=== PATIENT | male | born 1990 | race Two or more races ===

== ENCOUNTER 2019-01-27 13:39 | Emergency (ER) | payer SELFPAY ==
[2019-01-27 13:51] VITALS: BP 138/98; PULSE 98; RESP 18; TEMP 36.4; O2SAT 96; BMI 26.6
--- NOTE | 2019-01-27 13:54 | PC.NURSE ---
language line services used per facility ipad. eleonora intereacted between the staff and patient.
--- NOTE | 2019-01-27 14:11 | PC.NURSE ---
at bedside suturing
--- NOTE | 2019-01-27 14:50 | [facility].EDGENADL ---
ED Disposition Clinical Impression: Laceration of hand Disposition: Home, Self-Care Condition on Discharge: Good Instructions: DI for Laceration Repair Additional Instructions: sutures out in 10-14 days Referrals: Provider,Referral, [Primary Care Provider] - Time of Disposition: 14:53 - Critical Care Critical Care Time: No Attestation: On 01/27/19, the high probability of a clinically significant, sudden or life threatening deterioration of the following system(s) required my full and direct attention, intervention and personal management. The time I documented below is in addition to time spent performing reported procedures but includes the following listed in this critical care notation. Medical Decision Making - Medical Records Medical records reviewed: Yes: I reviewed the patient's medical records. - Allen Inquiry Pt receiving controlled substance: No Allen was queried for this patient: No Vital Signs: 01/27/19 13:51 Temperature 97.5 F L Temperature Source Oral Pulse Rate [Right Brachial] 98 H Respiratory Rate 18 Blood Pressure [Left Arm] 138/98 H Blood Pressure Mean [Left Arm] 111 Blood Pressure Source [Left Arm] Automatic Cuff Blood Pressure Position [Left Arm] Sitting 02 Sat by Pulse Oximetry 96 Oxygen Delivery Method Room Air - Lab Data Lab results reviewed: Yes: I reviewed the patient's lab results. Orders (Tests/Meds): ED MEDICATIONS Discontinued Medications Generic Name Dose Route Start Last Admin Trade Name Freq PRN Reason Stop Dose Admin Ibuprofen 600 mg 01/27/19 14:48 Motrin 600mg Tablet PO 01/27/19 14:49 ONCE ONE Tetanus/Reduced Diphtheria/Acell Pertussis 0.5 ml 01/27/19 14:48 Adacel Tdap 0.5ml Syringe IM 01/27/19 14:49 .ONCE ONE General Adult HPI - General Chief complaint: Wound/Laceration Stated complaint: cut on right hand Time Seen by Provider: 01/27/19 14:00 Mode of Arrival: Family Vehicle Source of Information: Patient Limitations: No Limitations Description of Symptoms (Recalled from ER Triage Doc. by RN): dropped an ice machine on his hand and sliced right hand - History of Present Illness HPI narrative: ice machine he and boss were carrying broke and he sustained a laceration to right paolm [facility] History - Hepatitis A Screen Drug use history?: No High risk sexual behaviors?: No History of sexually transmitted infection?: No Currently employed?: No Childcare worker?: No Do you have indoor plumbing?: Yes Do you have electricity?: Yes Attestation statement:: This patient has been screened for Hepatitis A risk factors. I have reviewed the patient's past medical history: Yes ROS Obtained: Yes All systems reviewed & no additional complaints - Constitutional Constitutional: Denies fever(s) - Cardiovascular Cardiovascular: Denies chest pain - Respiratory Respiratory: No chest congestion, No cough, No dyspnea - Musculoskeletal Musculoskeletal: Denies joint stiffness, Denies joint swelling, Denies limited range of motion, Denies muscle weakness - Integumentary/Breasts Skin/Breast: Reports skin pain, Reports wounds - Neurologic Neurologic: Denies sensory deficit, Denies tingling Physical Exam - General General appearance: alert, in no apparent distress - Head Head exam: atraumatic, normocephalic, normal inspection - Eye Eye exam: Present: normal appearance, PERRL, EOMI - Chest Chest inspection: Present: normal inspection, symmetric chest wall rise. Absent: tenderness - Respiratory Respiratory exam: Present: normal lung sounds bilaterally. Absent: respiratory distress - Cardiovascular Cardiovascular exam: Present: regular rate, normal rhythm. Absent: JVD - Extremities Exam Extremities exam: Present: normal inspection, full ROM, tenderness, normal capillary refill. Absent: calf tenderness - Neurological Exam Neurological exam: Present: alert, oriented X3 - Psychiatric Psychiatr
--- NOTE | 2019-01-27 14:53 | ED_ITS ---
ED Disposition Clinical Impression: Laceration of hand Disposition: Home, Self-Care Condition on Discharge: Good Instructions: DI for Laceration Repair Additional Instructions: sutures out in 10-14 days Referrals: Provider,Referral, [Primary Care Provider] - Time of Disposition: 14:53 - Critical Care Critical Care Time: No Attestation: On 01/27/19, the high probability of a clinically significant, sudden or life threatening deterioration of the following system(s) required my full and direct attention, intervention and personal management. The time I documented below is in addition to time spent performing reported procedures but includes the following listed in this critical care notation. Medical Decision Making - Medical Records Medical records reviewed: Yes: I reviewed the patient's medical records. - Allen Inquiry Pt receiving controlled substance: No Allen was queried for this patient: No Vital Signs: 01/27/19 13:51 Temperature 97.5 F L Temperature Source Oral Pulse Rate [Right Brachial] 98 H Respiratory Rate 18 Blood Pressure [Left Arm] 138/98 H Blood Pressure Mean [Left Arm] 111 Blood Pressure Source [Left Arm] Automatic Cuff Blood Pressure Position [Left Arm] Sitting 02 Sat by Pulse Oximetry 96 Oxygen Delivery Method Room Air - Lab Data Lab results reviewed: Yes: I reviewed the patient's lab results. Orders (Tests/Meds): ED MEDICATIONS Discontinued Medications Generic Name Dose Route Start Last Admin Trade Name Freq PRN Reason Stop Dose Admin Ibuprofen 600 mg 01/27/19 14:48 Motrin 600mg Tablet PO 01/27/19 14:49 ONCE ONE Tetanus/Reduced Diphtheria/Acell Pertussis 0.5 ml 01/27/19 14:48 Adacel Tdap 0.5ml Syringe IM 01/27/19 14:49 .ONCE ONE General Adult HPI - General Chief complaint: Wound/Laceration Stated complaint: cut on right hand Time Seen by Provider: 01/27/19 14:00 Mode of Arrival: Family Vehicle Source of Information: Patient Limitations: No Limitations Description of Symptoms (Recalled from ER Triage Doc. by RN): dropped an ice machine on his hand and sliced right hand - History of Present Illness HPI narrative: ice machine he and boss were carrying broke and he sustained a laceration to right paolm [facility] History - Hepatitis A Screen Drug use history?: No High risk sexual behaviors?: No History of sexually transmitted infection?: No Currently employed?: No Childcare worker?: No Do you have indoor plumbing?: Yes Do you have electricity?: Yes Attestation statement:: This patient has been screened for Hepatitis A risk factors. I have reviewed the patient's past medical history: Yes ROS Obtained: Yes All systems reviewed & no additional complaints - Constitutional Constitutional: Denies fever(s) - Cardiovascular Cardiovascular: Denies chest pain - Respiratory Respiratory: No chest congestion, No cough, No dyspnea - Musculoskeletal Musculoskeletal: Denies joint stiffness, Denies joint swelling, Denies limited range of motion, Denies muscle weakness - Integumentary/Breasts Skin/Breast: Reports skin pain, Reports wounds - Neurologic Neurologic: Denies sensory deficit, Denies tingling Phys
[2019-01-27 15:10] VITALS: BP 125/97; PULSE 68; RESP 18; TEMP 36.1; O2SAT 96
== END 2019-01-27 15:13 | disposition home or self-care (01) ==
PROVIDERS: Emergency Provider Emergency Medicine
DX: S61.411A Laceration without foreign body of right hand, initial encounter (principal); W22.8XXA Striking against or struck by other objects, initial encounter; Y92.89 Other specified places as the place of occurrence of the external cause; Z23 Encounter for immunization
CPT/HCPCS: 12002; 90471; 90715; 96372; 99282